=== PATIENT | female | born 1965 | race Caucasian/White ===

== ENCOUNTER → 2022-08-18 | Outpatient (RCR) | payer BC | END | disposition home or self-care (01) | PROVIDERS: ATTEND Obstetrics & Gynecology Female Pelvic Medicine and Reconstructive Surgery | DX: N81.84 Pelvic muscle wasting (principal); Z98.890 Other specified postprocedural states ==

== ENCOUNTER → 2023-09-04 | Outpatient (CLI) | payer BC ==
--- NOTE | 2023-09-04 17:28 | Diagnostic Imaging Report ---
Indication: Left breast density. Patient presents for additional views. Correlation is made with screening study from 08/17/2023. Unilateral left 2-D and 3-D diagnostic mammography was performed. This includes spot compression CC and ML views as well as conventional 90 degrees lateral views and a repeat 3-D CC view. Additional views fail to demonstrate a discrete mass. The density noted in the lower inner aspect of the left breast shows normal dispersion of fibroglandular elements, consistent with superimposed tissue. No suspicious mass or malignant-appearing microcalcifications are identified. IMPRESSION: BI-RADS Category 1 Additional views fail to demonstrate a discrete mass. The patient may return to routine annual screening mammography. ACR BI-RADS Category 1: Negative. Result letter will be mailed to the patient. Note: At least 10% of breast cancer is not imaged by mammography. Dictated by: Dictated on workstation # [id number]
== END ==
LOC: RAD 12:27
PROVIDERS: ATTEND Internal Medicine
DX: N63.24 Unspecified lump in the left breast, lower inner quadrant (principal)
CPT/HCPCS: 77065; G0279